=== PATIENT | male | born 1980 | race Caucasian/White ===

== ENCOUNTER 2024-02-13 15:53 | Emergency (ER) | payer OTHER, SELFPAY ==
--- NOTE | ~2024-02-13 | XR_ITS ---
HISTORY: L shoulder pain, Fall down 2 stairs COMPARISON: None TECHNIQUE: 4 views of the shoulder were performed. FINDINGS: No acute fracture. The glenohumeral and acromioclavicular joint space is maintained The visualized portion of the adjacent left lung is clear. The humeral head is well seated within the glenoid fossa. IMPRESSION: No acute fracture or anterior dislocation. Reviewed, dictated and finalized at location A.
--- NOTE | 2024-02-13 16:22 | ED.FALL ---
HPI - Fall General Chief Complaint: Fall Stated Complaint: fell down 2-3 steps L arm/shoulder pain Time Seen by Provider: 02/13/24 16:09 Source: patient Mode of arrival: ambulatory Limitations: other (intellectual disability) History of Present Illness HPI Narrative: This is a 43-year-old male with PMH of intellectual disability who presents to the ED with family members and with chief complaint of fall that occurred earlier today. Family reports patient has been favoring his left shoulder and not really raising his arm. They do not feel he has been favoring any other area. Denies any issues with ambulation. Denies altered mental status or LOC. Related Data Allergies Allergy/AdvReac Type Severity Reaction Status Date / Time No Known Allergies Allergy Verified 02/13/24 15:54 Review of Systems Review of Systems: All systems as dictated in HPI Exam Narrative: GENERAL: Well-appearing, well-nourished, and in no acute distress. HEAD: Normocephalic, atraumatic. EYES: PERRLA and EOMI. ENT: Nares clear, no rhinorrhea or epistaxis. Mucous membranes moist. Oropharynx without tonsillar hypertrophy exudate or other lesions. NECK: Supple. No adenopathy or masses. CHEST: No respiratory distress. Clear to auscultation. No wheezes rales or rhonchi. No chest wall tenderness. HEART: Regular rate and rhythm. No murmur heard. Normal peripheral pulses. ABDOMEN: Soft, nontender, nondistended, normal active bowel sounds. MSK: Difficulty with passive range of motion of the left shoulder, likely due to pain. No deformity. No crepitus. No bruising. Minimal tenderness. No tenderness throughout rest of the extremity exam. No midline spinal tenderness throughout. SKIN: Warm, dry, no rash. NEURO: Alert and oriented x4. No focal deficits. PSYCH: Normal mood and affect. Course Vital Signs Vital signs: Vital Signs Temperature 97.7 F 02/13/24 16:31 Pulse Rate 87 02/13/24 16:31 Respiratory Rate 18 02/13/24 16:31 Blood Pressure 129/93 H 02/13/24 16:31 Pulse Oximetry 95 02/13/24 16:31 Oxygen Delivery Room Air 02/13/24 16:31 Temperature 97.3 F L 02/13/24 17:41 Pulse Rate 88 10/24/24 17:41 Respiratory Rate 13 02/13/24 17:41 Blood Pressure 123/87 02/13/24 17:41 Pulse Oximetry 100 02/13/24 17:41 Oxygen Delivery Room Air 02/13/24 16:31 MDM - Fall MDM Narrative Medical decision making narrative: This is a 43-year-old male with intellectual disability who presents with family members and possible left shoulder injury today. Vitals are normal. Exam does show patient apprehensive to range the left shoulder. No outward signs of trauma otherwise. Left shoulder x-rays are normal. Patient was given Tylenol here. Pt will be discharged in stable condition. Return precautions given and supportive measures discussed. Pt is understanding and agreeable with plan for discharge and follow-up with PCP. Discharge Plan Discharge Clinical Impression: Fall, Acute pain of left shoulder Patient Disposition: Home, Self-Care Condition: Stable Instructions: Antibiotic Form Additional Instructions: Exam and imaging today are reassuring overall. Please take Tylenol and ibuprofen every 6 hours as needed for pain control. Follow-up with PCP on this issue. If you have any new or worsening symptoms please return to the ER for further evaluation. Follow-up/Referrals: Isaiah,Sindi Arciniega NP [Non-Staff] - Time of Disposition: :24
[2024-02-13] MEDS: ACETAMINOPHEN 325 MG TABLET 650 MG PO (16:30)
[2024-02-13 16:31] VITALS: BP 129/93; PULSE 87; RESP 18; TEMP 36.5; O2SAT 95
[2024-02-13 17:41] VITALS: BP 123/87; PULSE 88; RESP 13; TEMP 36.3; O2SAT 100
== END 2024-02-13 17:42 | disposition home or self-care (01) ==
LOC: ANHED 17:18
PROVIDERS: Emergency Provider Physician Assistant
DX: M25.512 Pain in left shoulder (principal); W19.XXXA Unspecified fall, initial encounter; F79 Unspecified intellectual disabilities
CPT/HCPCS: 73030; 99283; A9270

== ENCOUNTER 2024-09-28 13:28 | Emergency (ER) | payer OTHER, SELFPAY ==
--- NOTE | 2024-09-28 13:29 | ED_ITS ---
HPI - URI/Sore Throat General Chief Complaint: Upper Respiratory Infection Stated Complaint: cough Time Seen by Provider: 09/28/24 13:36 Source: patient, RN notes reviewed and old records reviewed Mode of arrival: ambulatory Limitations: no limitations History of Present Illness HPI Narrative: 43-year-old male presents to the [facility] with mom with concerns of 6 days of clearing his throat. Denies fever. Patient denies any pain. Take Zyrtec every day Related Data Home Medications ?Medication ?Instructions ?Recorded ?Confirmed ?Last Taken ?Type No Home Medications 09/28/24 09/28/24 Unknown History Allergies Allergy/AdvReac Type Severity Reaction Status Date / Time No Known Allergies Allergy Verified 09/28/24 13:38 Review of Systems Review of Systems: All systems reviewed & are unremarkable except as noted in HPI and below Constitutional: Constitutional: Reports no additional constitutional complaints ENT: Reports as per HPI Cardiovascular: Cardiovascular: Reports no additional cardiovascular complaints, Denies chest pain and Denies dyspnea Respiratory: Respiratory: Reports no additional respiratory complaints, Denies chest congestion, Denies cough and Denies dyspnea Musculoskeletal: Musculoskeletal: Reports no additional musculoskeletal complaints Integumentary/Breasts: Skin/Breast: Reports system reviewed and no additional complaints, except as docu PMFSH Comments At the time of my signature, I reviewed and agree with the nursing past medical, surgical, social, and family history. There is no relevant family history pertinent to the patient complaint. Exam Const: General: cooperative, healthy appearing, comfortable, no acute distress, well developed, alert and well nourished Nutritional Appearance: well nourished Orientation/consciousness: patient oriented x3 Limitations: no limitations HENMT: Head: normal to inspection Ears: hearing grossly normal bilaterally, external ears normal, TM's normal bilaterally, EAC's normal, mastoids normal and no periauricular adenopathy Face/Nose/Sinus: Normal external nose present Face and sinus: normal facial exam and sinuses nontender Mouth: Yes Normal oral and palatal mucosa present, Yes lip normal, Yes tongue normal and Yes moist mucous membranes Throat: uvula midline, postnasal drainage and no uvular edema Eyes: General: appearance normal, both eyes and all related structures Alignment and Position: alignment normal Neck: Neck: normal visual inspection, full ROM, no lymphadenopathy and no meningeal signs Chest: Chest palpation & inspection: normal inspection of the chest Resp: Effort & Inspection: normal respiratory effort and able to speak in complete sentences Auscultation: clear to auscultation bilaterally, no crackles, no rales, no rhonchi and no wheezes Cardio: Rate: regular rate Skin: General skin exam: normal color and no rashes or lesions noted Neuro: General: patient oriented x3, gait normal, moves all extremities and no meningeal signs Cognition (Neuro): normal cognition Speech: normal speech Gait exam (Neuro): Normal gait present Extrem: General: normal to inspection, full ROM, capillary refill normal and normal gait Psych: Appearance: grossly normal and well kempt Mental Status: mental status grossly normal Speech and movement: Normal speech and movement present and Clear speech present Affect: normal affect Attitude: cooperative Course Course Level of Care: Express Care Visit Vital Signs Vital signs: Vital Signs Temperature 97.5 F L 09/28/24 13:35 Pulse Rate 120 H 09/28/24 13:35 Respiratory Rate 16 09/28/24 13:35 Blood Pressure 139/86 09/28/24 13:35 Pulse Oximetry 98 09/28/24 13:35 Oxygen Delivery Room Air 09/28/24 13:35 Temperature 97.5 F L 09/28/24 13:35 Pulse Rate 120 H 09/28/24 13:35 Respiratory Rate 16 09/28/24 13:35 Blood Pressure 139/86 09/28/24 13:35 Pulse Oximetry 98 09/28/24 13:35 Oxygen Delivery Room Air 09/28/24 13:35 Reviewed MDM - URI/Sore Throat MDM Narrative Medical decision making narrative: Patient sitting exam. Patient is nontoxic, vitals are stable. Patient presents with mom. Six day history of throat clearing. Mom denies any other symptoms. Patient appropriate for outpatient treatment and follow-up Discharge instructions reviewed with patient, as well as provided in writing per nursing staff. The instructions also include specific and strict return/GO TO THE ER as well as f/u information. All questions have been answered, and the patient deny any further questions with discharge and discharge plan. Some parts of this dictation were generated by voice recognition software and may contain typographical and/or grammatical inaccuracies. Differential Diagnosis Differential diagnosis: Likely upper respiratory infection, otitis media, sinusitis, viral infection, bronchitis, influenza and pharyngitis Critical Care Time Critical Care Time Critical Care Time: No Discharge Plan Discharge Clinical Impression: PND (post-nasal drip) Patient Disposition: Home Condition: Stable Instructions: Antibiotic Form, Postnasal Drip (DC) Additional Instructions: It is very important to treat your symptoms. Drink plenty of water, Gatorade, Pedialyte, ice pops or Jell-O. -Alternate Tylenol and Motrin per package directions for fever or pain. You can alternate every 4 hours -Antihistamine medication such as Zyrtec/Claritin/Nela during the day can help improve symptoms. -doing daily nasal irrigations can help relieve pressure your sinuses. Things like a Neti pot -Use Flonase twice a day for 5 days then daily to help reduce the inflammation and dry up your sinuses. -You can also use Mucinex. Be sure to drink plenty of water with this medication at least 8 ounces with every dose and it is important to drink 8 to 10 glasses of water per day. Water is a natural decongestant -Frequent hand washing or hand industrial maintenance millwright is one of the best ways to prevent spread of infection. -Using a vaporizer or humidifier at night will also help thin secretions and help with coughing up phlegm. -Follow up with primary care provider in 7-10 days if condition is not improving - For new or worsening symptoms go directly to the nearest ER Patient Language: Yakut Prescriptions: No Action No Home Medications Follow-up/Referrals: UNKNOWN,DOCTOR [Primary Care Provider] - Stand Alone Forms: Work/School Release IP Time of Disposition: 13:43
[2024-09-28 13:35] VITALS: BP 139/86; PULSE 120; RESP 16; TEMP 36.4; O2SAT 98
== END 2024-09-28 13:49 | disposition home or self-care (01) ==
PROVIDERS: Emergency Provider Nurse Practitioner
DX: R09.82 Postnasal drip (principal)
CPT/HCPCS: 99211; G0463